=== PATIENT | male | born 1980 | race Caucasian/White ===

== ENCOUNTER 2022-10-28 23:42 | Emergency (ER) | payer SELFPAY ==
[~2022-10-28] VITALS: Ht 172.7 cm; Wt 70.0 kg
[2022-10-29 01:23] LABS: CHLORIDE 93 mEq/L (98-107)
[2022-10-29 01:34] LABS: BASOPHILS % 0.1 % (0.0-2.0); HEMATOCRIT. 47.9 % (42.0-52.0); HEMOGLOBIN. 16.9 g/dL (14.0-18.0); LYMPHOCYTES % 12.6 % (20.0-50.0); MEAN CORPUSCULAR VOLUME 93.6 fL (80.0-94.0); MEAN PLATELET VOLUME 7.8 fl (7.4-10.4); MONOCYTES % 8.1 % (2.0-8.0); NEUTROPHILS % 79.2 % (40.0-76.0); PLATELET 278 x1000/uL (130-400); RED BLOOD CELL COUNT 5.12 mill/uL (4.7-6.1); RED CELL DISTRIBUTION WIDTH 13.8 % (11.6-14.6)
[2022-10-29 02:42] LABS: ETHANOL BLOOD 534 mg/dL
[2022-10-29] MEDS ORDERED: CHLORDIAZEPOXIDE 25MG CAPSULE PO ONE (03:15)
[2022-10-29] MEDS ORDERED: POTASSIUM CHLORIDE 20MEQ TABLET SR PO ONE (03:15)
[2022-10-29] MEDS ORDERED: ONDANSETRON 4MG ODT PO ONE (04:15)
[2022-10-29 05:52] VITALS: BP 130/84
== END 2022-10-29 05:57 | disposition home or self-care (01) ==
LOC: EDBD 23:42 → ER 23:42
DX: T51.91XA Toxic effect of unspecified alcohol, accidental (unintentional), initial encounter (principal); Y92.9 Unspecified place or not applicable; F10.129 Alcohol abuse with intoxication, unspecified; Y90.8 Blood alcohol level of 240 mg/100 ml or more
CPT/HCPCS: 36415; 80053; 80320; 85025; 99284; Q0162; Z7610; G0480